=== PATIENT | female | born 1950 | race Caucasian/White ===

== ENCOUNTER 2020-10-26 08:53 | Outpatient (REF) | payer BC, SELFPAY ==
[2020-10-26 14:20] LABS: Alanine Aminotransferase 41 U/L (0-31); Anion Gap 14 (12-20); Aspartate Amino Transferase 30 U/L (5-31); Blood Urea Nitrogen 21 mg/dL (9-16); Carbon Dioxide 28 mmol/L (22-29); Chloride 104 mmol/L (96-108); Cholesterol 194 mg/dL; Estimated Glomerular Filt Rate > 60; HDL Cholesterol 49 mg/dL; LDL Cholesterol Calculated 102 mg/dl; Potassium 4.1 mmol/L (3.3-5.1); Sodium 142 mmol/L (135-145); Triglycerides 219 mg/dL
== END 2020-10-26 08:54 | disposition home or self-care (01) ==
LOC: HO.HMGCLDS 08:53
PROVIDERS: PCP Internal Medicine; Visit Provider Internal Medicine
DX: E78.00 Pure hypercholesterolemia, unspecified (principal); I10 Essential (primary) hypertension
CPT/HCPCS: 36415; 80051; 80061; 82565; 84450; 84460; 84520

== ENCOUNTER 2022-09-29 15:32 | Emergency (ER) | payer MEDICARE, SELFPAY ==
--- NOTE | ~2022-09-29 | US_ITS ---
EXAMINATION: US PELVIS CLINICAL INFORMATION: Lower abdominal pain COMPARISON: Pelvic ultrasound 06/27/2021 TECHNIQUE: Ultrasound of the pelvis is performed using both transabdominal and transvaginal transducers along with Doppler. Transvaginal imaging is performed due to inadequate visualization transabdominally. FINDINGS: Uterus: The uterus is anteverted and measures 6.2 x 2.9 x 3.9 cm. The double wall endometrial thickness is 0.4 mm. The uterus is smooth in contour and has normal myometrial echogenicity. A fundal fibroid is noted on the right measuring 1.6 x 1.5 x 1.3 cm. In 2021 this measured 2.5 cm. A small punctate calcification is seen in the lower uterine segment Adnexa: The right ovary was not seen. Left ovary measures 1.5 x 0.7 x 0.9 cm for a volume of 0.5 mL and appears unremarkable. No free fluid was present in the cul-de-sac US/US pelvic ovarian doppler IMPRESSION: 1. Small uterine fibroid. 2. Normal-appearing left ovary. 3. Nonvisualization of the right ovary.
--- NOTE | ~2022-09-29 | CT_ITS ---
EXAMINATION: CT ABDOMEN AND PELVIS WITH CONTRAST CLINICAL INFORMATION: Abdominal pain with urinary tract symptoms COMPARISON: None available. TECHNIQUE: Multidetector volumetric images were obtained from the superior aspect of the liver through the pubic symphysis following administration 85 mL of Omnipaque 350 intravenous contrast. Sagittal and coronal reformatted images were obtained on the technologist's workstation. Oral contrast: No This CT examination was performed using dose optimization techniques as appropriate, variously including the following: *Automated exposure control *Adjustment of mA and/or kV according to patient size (this includes techniques or standardized protocols for targeted exams where dose is matched to indication/reason for exam; i.e. extremities or head) *Use of iterative reconstruction technique DLP: 523 mGy-cm FINDINGS: LUNG BASES: The visualized lung bases are unremarkable aside from some minimal basilar atelectasis.. LIVER, GALLBLADDER, AND BILIARY TREE: The liver is enlarged measuring almost 23 cm in cephalocaudad dimension with decreased attenuation suggesting hepatic steatosis. No focal hepatic lesion or biliary ductal dilatation is present. The dome of the right lobe of the liver is not included on this exam. The gallbladder is unremarkable with no evidence of radiopaque gallstones, gallbladder wall thickening, or obvious pericholecystic inflammatory changes. PANCREAS: Unremarkable. SPLEEN: Unremarkable. ADRENAL GLANDS: Unremarkable. KIDNEYS AND URETERS: The kidneys are normal in size, shape, and attenuation. Tiny 3 and 4 mm hypodensities in the left kidney consistent with benign cysts. No additional imaging or follow-up is needed. No solid renal masses. No hydronephrosis, hydroureter, or calculi seen. No perinephric stranding. BLADDER: Unremarkable. GASTROINTESTINAL TRACT: Colonic diverticula are present most prominent on the left without evidence of acute diverticulitis. The small and large bowel are unremarkable. The appendix is not seen but there is no evidence of appendicitis evidence of appendicitis. ABDOMINAL WALL: No significant hernia is appreciated. LYMPH NODES: Normal. VASCULAR: Unremarkable. PELVIC VISCERA: The uterus and adnexa are unremarkable aside from the presence of some punctate calcifications in the lower uterine segment and cervix. OSSEOUS STRUCTURES: Degenerative changes are present most marked at L5-S1. CT/CT abdomen pelvis w IV con IMPRESSION: 1. An etiology for the patient's abdominal pain has not been found. 2. Incidental note made of an enlarged fatty liver, colonic diverticulosis without diverticulitis and degenerative changes L5-S1. Fleischner guidelines were followed.
--- NOTE | ~2022-09-29 | US_ITS ---
EXAMINATION: US PELVIS CLINICAL INFORMATION: Lower abdominal pain COMPARISON: Pelvic ultrasound 06/27/2021 TECHNIQUE: Ultrasound of the pelvis is performed using both transabdominal and transvaginal transducers along with Doppler. Transvaginal imaging is performed due to inadequate visualization transabdominally. FINDINGS: Uterus: The uterus is anteverted and measures 6.2 x 2.9 x 3.9 cm. The double wall endometrial thickness is 0.4 mm. The uterus is smooth in contour and has normal myometrial echogenicity. A fundal fibroid is noted on the right measuring 1.6 x 1.5 x 1.3 cm. In 2021 this measured 2.5 cm. A small punctate calcification is seen in the lower uterine segment Adnexa: The right ovary was not seen. Left ovary measures 1.5 x 0.7 x 0.9 cm for a volume of 0.5 mL and appears unremarkable. No free fluid was present in the cul-de-sac US/US pelvic and transvaginal IMPRESSION: 1. Small uterine fibroid. 2. Normal-appearing left ovary. 3. Nonvisualization of the right ovary.
[2022-09-29 15:56] VITALS: BP 148/77; PULSE 70; RESP 18; TEMP 37.1; O2SAT 96; BMI 31.6
[2022-09-29 16:21] LABS: MANUAL DIFF FLAG NO
[2022-09-29 16:23] LABS: Basophils Percent Auto 0.4 % (0-2); Eosinophils Absolute Auto 0.1 X10*3/uL (0.0-0.4); Eosinophils Percent Auto 0.7 % (0-4); Hematocrit 43.3 % (37.0-47.0); Imm Gran Abs Auto 0.06 X10*3/uL (0.00-0.03); Imm Gran Pct Auto 0.6 % (0.0-0.4); Lymphocytes Absolute Auto 4.3 X10*3/uL (1.2-4.9); Lymphocytes Percent Auto 40.2 % (20-40); Mean Corpuscular HGB Conc 32.3 g/dl (31.0-35.0); Mean Corpuscular Hemoglobin 27.9 pg (27.0-33.0); Mean Corpuscular Volume 86.4 fL (80.0-98.0); Mean Platelet Volume 9.5 fL (9.4-12.3); Monocytes Absolute Auto 0.5 X10*3/uL (0.1-1.2); Monocytes Percent Auto 4.5 % (2-11); Neutrophils Absolute Auto 5.8 x10*3/uL (2.0-8.3); Neutrophils Percent Auto 53.6 % (45-73); Platelet Count 273 X10*3/uL (160-400); Red Blood Count 5.01 X10*6/uL (4.20-5.50); Red Cell Distribution Width 13.2 % (11.0-16.0); White Blood Count 10.8 X10*3/uL (4.8-10.8)
[2022-09-29 16:25] LABS: Appearance Urine Clear; Color Urine Yellow; Glucose Urine UA Negative (Negative); Leukocyte Esterase Urine Negative (Negative); Nitrite Urine Negative (Negative); PH 5.5 (5.0-9.0); Specific Gravity - Urine 1.015 (1.005-1.025); Urine Blood Negative (Negative); Urine Ketones Negative (Negative); Urine Protein Negative (Neg-Trace)
[2022-09-29 16:36] LABS: Anion Gap 15 (12-20); Blood Urea Nitrogen 17 mg/dL (9-16); Calcium 9.8 mg/dL (8.4-10.2); Carbon Dioxide 28 mmol/L (22-29); Chloride 106 mmol/L (96-108); Creatinine Clr Calc Pharmacy 57.5; Estimated Glomerular Filt Rate > 60; Glucose Random 99 mg/dL (60-115); Sodium 145 mmol/L (135-145)
[2022-09-29 16:50] LABS: COVID-19 Test Negative (Negative); IDNOW Serial# BCCEAD1C
--- NOTE | 2022-09-29 17:48 | ED.ABDPAIN ---
HPI - Abdominal Pain General Chief Complaint: Abdominal Pain Stated Complaint: abd pain/ high bp Time Seen by Provider: 09/29/22 17:46 Source: patient Mode of arrival: ambulatory Limitations: no limitations History of Present Illness HPI narrative: This is 72-year-old female presenting to the emergency department for evaluation of suprapubic abdominal discomfort, urinary hesitancy and frequency since this morning. Patient reports sharp/stabbing pain that is intermittent in nature at times worse when she tries to urinate. This is never happened to her before. No history of kidney stones. She does report that she has had issues with her endometrium in the past and they did cause similar pain. Patient denies dysuria, hematuria, fevers, chills, chest pain, shortness of breath, nausea, vomiting, flank pain, dizziness, weakness. Related Data Previous Rx's Medication Instructions Recorded cefuroxime axetil 250 mg tablet 250 mg PO BID 7 days #14 tabs 09/29/22 Allergies Allergy/AdvReac Type Severity Reaction Status Date / Time Unable to Assess Allergy Unverified 09/29/22 17:48 Review of Systems Review of Systems Constitutional : No Weight loss, No Fever, No Chills, No Fatigue, No Malaise ENT/Mouth : No sore throat, No Rhinorrhea Eyes: No Eye Pain, No Swelling, No Redness Cardiovascular : No Chest Pain, No SOB, No Dyspnea on Exertion, No Orthopnea, No Edema, No Palpitations Respiratory : No Cough, No Sputum, No Wheezing Gastrointestinal : No Nausea, No Vomiting, No Diarrhea, No Constipation, + abdominal Pain, No Hematochezia, No Melena Genitourinary : No Dysuria, + Urinary Frequency, No Hematuria, Musculoskeletal : No joint pain, No Myalgias, No Joint Swelling Skin : No Skin Lesions, No rash Neuro : No Weakness, No Numbness, No Dizziness, No Headache Psych : No Anxiety/Panic, No Depression All other systems reviewed and are negative Yes all other systems are reviewed and are negative [facility] Past Medical History Attestation statement: The following information was validated with the patient. Source: old records reviewed and nursing notes reviewed Social History Social History Alcohol intake: current Alcohol intake frequency: holidays/special occasions only Smoked in Last 30 Days: No Use of substances other than those prescribed or required for medical reasons: No Advance Directives: No Advance Directives Information Provided: No Physical Exam ED Vital Signs: Vital Signs - 24 hr 09/29/22 15:56 09/29/22 18:41 09/29/22 20:41 Temperature 98.8 F 97.6 F Pulse Rate 70 70 66 Respiratory Rate 18 16 18 Blood Pressure 148/77 H 151/74 H 146/70 H Pulse Oximetry 96 96 95 Oxygen Delivery Method Room Air Room Air Room Air BMI result Body Mass Index 31.6 vss Appearance: Alert.? Oriented X3.? No acute distress.? Head: Normocephalic, atraumatic, no step-offs or deformities Eyes: Pupils equal, round and reactive to light.? ENT: Pharynx normal.? CVS: Normal heart rate and rhythm.? Pulses normal.? Respiratory: No respiratory distress.? Breath sounds normal.? Abdomen: Soft and mild suprapubic discomfort.? Skin: Skin warm and dry.? Normal skin color.? Normal skin turgor.? Extremities: No lower extremity edema.? No calf ttp. 5/5 strength to bilateral upper and lower extremities Back: No CVA tenderness bilaterally Neuro: Oriented X 3.? No motor deficit.? No sensory deficit. CN 2-12 intact Course Reevaluation(s) Reevaluation #1: CBC appears to be within normal limits. Chemistry unremarkable. UA without infection. COVID negative. Imaging pending. Time: 19:43 Reevaluation #2: US w/ small uterine fibroid and normal appearing left ovary. Nonvisualized right ovary. Doppler flow is seen to the left ovary, unable to visualize right ovary on ultrasound however unlikely that this is ovarian torsion. CT of the abdomen and pelvis unable to identify an etiology for patient's abdominal pain. Incidental note of enlarged fatty liver, colonic diverticulosis and degenerative changes at L5 and S1. Patient feeling better after morphine. No longer tender to palpation anywhere. Will treat for cystitis, and UTI some with Ceftin. Educated patient on diagnosis and treatment plan, answered all question, patient verbalizes understanding. At this time patient will be discharged home, advised to return with new or worsening symptoms. Educated on worrisome signs and symptoms and when to return. At this time I feel comfortable discharge home. Time: 21:31 Medical Decision Making Medical Decision Making [facility] Narrative: 1800 72 of female presents with suprapubic abdominal discomfort, frequent urination and difficulty initiating urinary stream since this morning Physical exam suprapubic discomfort. Concerns for possible UTI versus cystitis versus kidney stone versus obstructing uropathy. No signs of pyelonephritis. Unlikely ovarian cyst or ovarian torsion. Plan labs, urine, imaging Differential Diagnosis Differential Diagnoses: The differential diagnosis associated with the presentation includes Concerns for possible UTI versus cystitis versus kidney stone versus obstructing uropathy. No signs of pyelonephritis. Unlikely ovarian cyst or ovarian torsion. Admission/Observation Consideration of admission/observation: Escalation of care including admission/observation considered Unlikely Lab Data [facility] Lab Attestation statement: I reviewed the patient's lab results. 09/29/22 16:15 09/29/22 16:15 Labs: Lab Results 09/29/22 09/29/22 09/29/22 Range/Units 16:12 16:12 16:15 WBC 10.8 (4.8-10.8) X10*3/uL RBC 5.01 (4.20-5.50) X10*6/uL Hgb 14.0 (12.0-16.0) g/dl Hct 43.3 (37.0-47.0) % MCV 86.4 (80.0-98.0) fL MCH 27.9 (27.0-33.0) pg MCHC 32.3 (31.0-35.0) g/dl RDW 13.2 (11.0-16.0) % Plt Count 273 (160-400) X10*3/uL MPV 9.5 (9.4-12.3) fL Immature Gran % (Auto) 0.6 H (0.0-0.4) % Neut % (Auto) 53.6 (45-73) % Lymph % (Auto) 40.2 H (20-40) % [place] % (Auto) 4.5 (2-11) % Eos % (Auto) 0.7 (0-4) % Baso % (Auto) 0.4 (0-2) % Lymph # (Auto) 4.3 (1.2-4.9) X10*3/uL [place] # (Auto) 0.5 (0.1-1.2) X10*3/uL Eos # (Auto) 0.1 (0.0-0.4) X10*3/uL Baso # (Auto) 0.0 (0.0-0.2) X10*3/uL Abs Immat Gran (auto) 0.06 H (0.00-0.03) X10*3/uL Absolute Neuts (auto) 5.8 (2.0-8.3) x10*3/uL Absolute Nucleated RBC 0.000 (0.0-0.012) X10*3/uL Nucleated RBC % (auto) 0.0 (0.0-0.2) /100WBC Sodium (135-145) mmol/L Potassium (3.3-5.1) mmol/L Chloride (96-108) mmol/L Carbon Dioxide (22-29) mmol/L Anion Gap (12-20) BUN (9-16) mg/dL Creatinine (0.5-1.4) mg/dL Estim Creat Clear Calc Estimated GFR Random Glucose (60-115) mg/dL Calcium (8.4-10.2) mg/dL Total Bilirubin (0.0-1.0) mg/dL Direct Bilirubin (0.0-0.5) mg/dL AST (5-31) U/L ALT (0-31) U/L Alkaline Phosphatase (39-117) U/L Total Protein (6.5-8.0) g/dL Albumin (3.5-5.0) g/dL Lipase (8-78) U/L Urine Color Yellow Urine Appearance Clear Urine pH 5.5 (5.0-9.0) Ur Specific [place] 1.015 (1.005-1.025) Urine Protein Negative (Neg-Trace) mg/dL Urine Glucose (UA) Negative (Negative) mg/dL Urine Ketones Negative (Negative) mg/dL Urine Blood Negative (Negative) Urine Nitrite Negative (Negative) Ur Leukocyte Esterase Negative (Negative) COVID-19 (YAYA) Negative (Negative) COVID-19 Clin Com See Note 09/29/22 Range/Units 16:15 WBC (4.8-10.8) X10*3/uL RBC (4.20-5.50) X10*6/uL Hgb (12.0-16.0) g/dl Hct (37.0-47.0) % MCV (80.0-98.0) fL MCH (27.0-33.0) pg MCHC (31.0-35.0) g/dl RDW (11.0-16.0) % Plt Count (160-400) X10*3/uL MPV (9.4-12.3) fL Immature Gran % (Auto) (0.0-0.4) % Neut % (Auto) (45-73) % Lymph % (Auto) (20-40) % [place] % (Auto) (2-11) % Eos % (Auto) (0-4) % Baso % (Auto) (0-2) % Lymph # (Auto) (1.2-4.9) X10*3/uL [place] # (Auto) (0.1-1.2) X10*3/uL Eos # (Auto) (0.0-0.4) X10*3/uL Baso # (Auto) (0.0-0.2) X10*3/uL Abs Immat Gran (auto) (0.00-0.03) X10*3/uL Absolute Neuts (auto) (2.0-8.3) x10*3/uL Absolute Nucleated RBC (0.0-0.012) X10*3/uL Nucleated RBC % (auto) (0.0-0.2) /100WBC Sodium 145 (135-145) mmol/L Potassium 4.0 (3.3-5.1) mmol/L Chloride 106 (96-108) mmol/L Carbon Dioxide 28 (22-29) mmol/L Anion Gap 15 (12-20) BUN 17 H (9-16) mg/dL Creatinine 0.78 (0.5-1.4) mg/dL Estim Creat Clear Calc 57.5 Estimated GFR > 60 Random Glucose 99 (60-115) mg/dL Calcium 9.8 (8.4-10.2) mg/dL Total Bilirubin 0.3 (0.0-1.0) mg/dL Direct Bilirubin 0.1 (0.0-0.5) mg/dL AST 31 (5-31) U/L ALT 34 H (0-31) U/L Alkaline Phosphatase 107 (39-117) U/L Total Protein 7.1 (6.5-8.0) g/dL Albumin 4.4 (3.5-5.0) g/dL Lipase 24 (8-78) U/L Urine Color Urine Appearance Urine pH (5.0-9.0) Ur Specific [place] (1.005-1.025) Urine Protein (Neg-Trace) mg/dL Urine Glucose (UA) (Negative) mg/dL Urine Ketones (Negative) mg/dL Urine Blood (Negative) Urine Nitrite (Negative) Ur Leukocyte Esterase (Negative) COVID-19 (YAYA) (Negative) COVID-19 Clin Com Independent Interpretation I performed an independent interpretation of an: Ultrasound ( US/US pelvic ovarian doppler IMPRESSION: 1. Small uterine fibroid. 2. Normal-appearing left ovary. 3. Nonvisualization of the right ovary.) and CT Scan Radiology Impression Discussion of test interpretation with radiology: I have reviewed the radiologist's reading. Prescription Management I considered prescription management with: Antibiotic Core Measures AMI core measures followed: Yes Measure exclusions: not indicated Medications Administered Discontinued Medications Generic Name Dose Route Start Last Admin Trade Name Brady PRN Reason Stop Dose Admin Iohexol 100 ml 09/29/22 19:21 09/29/22 19:21 Iohexol 350 Mg/Ml 100 Ml Infus..Btl IV 09/29/22 19:22 85 ml ONCE ONE Administration Morphine Sulfate 2 mg 09/29/22 19:09 09/29/22 20:35 Morphine Sulfate 2 Mg/Ml Cartridge IVPUSH 09/29/22 19:10 2 mg ONCE ONE Administration Protocol Critical Care Time Critical Care Time Critical Care Time: No Discharge Plan Discharge Clinical Impression: Abdominal pain, suprapubic, Urinary hesitancy Patient Disposition: Home, Self-Care Instructions: Pelvic Pain in Women (ED), Heat Pack Application (ED), Pelvic Pain (ED), Urinary Urgency and Frequency (DC) Additional Instructions: Take your medications as prescribed. If you were prescribed antibiotics today, it is important that you take your medication to their entirety, do not skip any doses, do not finish them early. Follow-up with your primary care provider this week. Return to the emergency department with new or worsening symptoms. Such as fevers, chills, chest pain, shortness of breath, nausea, vomiting, dizziness, headache, vision changes, lethargy In case of emergency call 911 CT/CT abdomen pelvis w IV con IMPRESSION: 1.? An etiology for the patient's abdominal pain has not been found. 2.? Incidental note made of an enlarged fatty liver, colonic diverticulosis without diverticulitis and degenerative changes L5-S1. ? Fleischner guidelines were followed. US/US pelvic and transvaginal IMPRESSION: 1.? Small uterine fibroid. 2.? Normal-appearing left ovary. 3.? Nonvisualization of the right ovary. Doppler flow was seen in the left ovary. The right ovary, as mentioned in the original report was not visualized and therefore vascular flow cannot be assessed. Prescriptions: New cefuroxime axetil 250 mg tablet 250 mg PO BID 7 Days Qty: 14 0RF Referrals: Ferny Doran MD [Primary Care Provider] - 2 days [facility] [Provider Group] - 2 days
[2022-09-29 18:05] LABS: Alanine Aminotransferase 34 U/L (0-31); Albumin Level 4.4 g/dL (3.5-5.0); Alkaline Phosphatase 107 U/L (39-117); Aspartate Amino Transferase 31 U/L (5-31); Bilirubin Direct 0.1 mg/dL (0.0-0.5); Bilirubin Total 0.3 mg/dL (0.0-1.0); Total Protein 7.1 g/dL (6.5-8.0)
[2022-09-29 18:41] VITALS: BP 151/74; PULSE 70; RESP 16; TEMP 36.4; O2SAT 96
[2022-09-29 18:58] LABS: Lipase 24 U/L (8-78)
[2022-09-29] MEDS: iohexoL 350 MG/ML 100 ML INFUS..BTL IV (19:21)
[2022-09-29] MEDS: Morphine Sulfate 2 MG/ML CARTRIDGE IVPUSH (20:35)
[2022-09-29 20:41] VITALS: BP 146/70; PULSE 66; RESP 18; O2SAT 95
== END 2022-09-29 22:15 | disposition home or self-care (01) ==
PROVIDERS: Physician Assistant; Emergency Provider Student in an Organized Health Care Education/Training Program; PCP Internal Medicine
DX: R33.9 Retention of urine, unspecified (principal); R10.2 Pelvic and perineal pain; Z20.822 Contact with and (suspected) exposure to COVID-19; Z20.828 Contact with and (suspected) exposure to other viral communicable diseases; Z79.899 Other long term (current) drug therapy
CPT/HCPCS: 74177; 76830; 76856; 80048; 80076; 81003; 83690; 85025; 87635; 93975; 96374; 99284; J2270; Q9967

== ENCOUNTER 2025-01-05 09:40 | Emergency (ER) | payer MEDICARE, SELFPAY ==
[2025-01-05 09:48] VITALS: BP 128/53; PULSE 83; RESP 18; TEMP 36.4; O2SAT 97; BMI 27.4
--- NOTE | 2025-01-05 09:56 | ED.GENADULT ---
HPI - General Adult General Chief complaint: Eye Problems Stated complaint: swollen left eye Time Seen by Provider: 01/05/25 09:51 Source: patient Mode of arrival: ambulatory Limitations: no limitations History of Present Illness ED Provider: Sylwia Beebe PA-C HPI narrative: Patient is a 74 year old assigned female at with a history of shingles diagnosed on 01/02 presenting to the emergency department today with bilateral below eye swelling - left worse than right. Patient states that she was diagnosed with shingles and started on PO antivirals but today she woke up and has bilateral below lower eye lid swelling, left worse than right. Patient denies any dizziness, lightheadedness, abdominal pain, nausea, vomiting, fever, chills, blurry vision, double vision, loss of vision, chest pain, difficulty breathing, shortness of breath, back pain, night sweats, pain with urination, increased urinary frequency, increased urinary urgency, blood in her urine or stool, syncope or a near syncopal episode, recent trauma or falls, bowel incontinence, bladder incontinence, or any other complaints at this time. Relieving factors: none Exacerbating factors: none Associated symptoms: rash Treatments prior to arrival: other (PO Antivirals since 01/02) Related Data Previous Rx's ?Medication ?Instructions ?Recorded cefuroxime axetil 250 mg tablet 250 mg PO BID 7 days #14 tabs 09/29/22 clindamycin HCl 300 mg capsule 300 mg PO TID 7 days #21 caps 01/05/25 (Cleocin HCl) ondansetron 4 mg disintegrating 4 mg PO Q8H 3 days #9 tabs 01/05/25 tablet prednisone 20 mg tablet 20 mg PO DAILY 7 days #7 tabs 01/05/25 Allergies Allergy/AdvReac Type Severity Reaction Status Date / Time No Known Allergies Allergy Verified 01/05/25 09:50 Review of Systems Constitutional: Constitutional: Reports no additional constitutional complaints, Denies chills, Denies fever(s) and Denies night sweats Eyes: Eyes: Reports no additional eye complaints, Denies blurry vision, Denies change in vision, Denies diplopia, Denies eye discharge, Denies loss of vision and Denies eye pain ENT: Denies dizziness Comments: bilateral lower eye lid swelling Cardiovascular: Cardiovascular: Reports no additional cardiovascular complaints, Denies chest pain, Denies lightheadedness, Denies Loss of Consciousness and Denies dyspnea Respiratory: Respiratory: Reports no additional respiratory complaints and Denies dyspnea Gastrointestinal: Gastrointestinal: Reports no additional gastrointestinal complaints, Denies abdominal pain, Denies melena, Denies hematochezia, Denies change in bowel habits and Denies change in stool character Genitourinary: Genitourinary: Denies hematuria, Denies urinary frequency, Denies dysuria, Denies urinary incontinence, Denies urinary hesitancy and Denies urinary urgency Musculoskeletal: Musculoskeletal: Reports no additional musculoskeletal complaints, Denies numbness and Denies tingling Integumentary/Breasts: Comments: left sided forehead rash Neurologic: Denies dizziness, Denies loss of vision, Denies numbness and Denies tingling Psychiatric: Psychiatric: Reports no additional psychiatric complaints Endocrine: Endocrine: Reports no additional endocrine complaints Hematologic/Lymphatic: Hematologic/Lymphatic: Reports no additional hematologic/lymphatic complaints Allergic/Immunologic: Allergic/Immunologic: Reports no additional allergic/immunologic complaints PMFSH Past Medical History Attestation statement: The following information was validated with the patient. Source: old records reviewed and nursing notes reviewed Social History Social History Alcohol intake: current Alcohol intake frequency: holidays/special occasions only Advance Directives: No Advance Directives Information Provided: Yes Do you have a plan to hurt others: No Plan Physical Exam ED Vital Signs: Vital Signs - 24 hr 01/05/25 09:48 01/05/25 11:03 Temperature 97.6 F 98.6 F Pulse Rate 83 70 Respiratory Rate 18 18 Blood Pressure 128/53 L 117/75 Pulse Oximetry 97 93 Oxygen Delivery Method Room Air Room Air BMI result Body Mass Index 27.4 Const General: cooperative, no acute distress, alert and awake Nutritional Appearance: well nourished Orientation/consciousness: patient oriented x3 HENMT Other: Head: Yes atraumatic Ears: hearing grossly normal bilaterally and external ears normal General nose exam: Normal external nose present, no nasal discharge noted and no epistaxis Face and sinus: No abrasion and No laceration Mouth: Normal oral and palatal mucosa present, no drooling and no muffled voice Eyes General: appearance normal, both eyes and all related structures Alignment and Position: alignment normal and position normal Periorbital: periorbital findings normal Eyelids: Yes eyelid abnormality (edema in upper and lower eyelid left eye; edema in lower eyelid right eye) Conjunctivae: conjunctivae normal Pupils: Equal, round and reactive pupils present EOM: EOMs intact bilaterally Direct Ophthalmoscopy: no photophobia Neck Neck: Yes normal visual inspection, Yes full ROM and Yes no lymphadenopathy Resp Effort & Inspection: normal respiratory effort and able to speak in complete sentences Skin Rashes: rashes noted (vesicles on erythematous base, some crusting lesions present) left frontal region Neuro General: patient oriented x3, moves all extremities and CN's II-XI intact bilaterally Cranial nerves: Yes Equal, round and reactive pupils present Cognition (Neuro): normal cognition Extrem General: Yes normal to inspection, Yes full ROM and Yes capillary refill normal Psych Appearance: grossly normal Mental Status: mental status grossly normal Affect: normal affect Attitude: cooperative Thought process: Normal thought process present Thought content: Normal thought content present Insight: Good insight present (Psych) Medical Decision Making Medical Decision Making MDM Narrative: Patient is a 74 year old assigned female at with a history of shingles diagnosed on 01/02 presenting to the emergency department today with bilateral below eye swelling - left worse than right. Patient's physical exam was as noted in the physical exam portion of this note. I explained my physical exam findings to the patient. I answered all questions asked by the patient. Patient's bilateral lower eye swelling is most consistent with soft tissue swelling secondary to her left sided forehead shingles. Patient's nose is compeltely normal, no lesions present. Patient's eyes themselves are normal. Given the lesion on the left upper eye lid and surrounding erythema / swelling - will treat as periorbital cellulitis. I stressed the importance of the patient taking her medication as directed (either prescribed or as the over the counter packaging recommends). I stressed the importance of the patient following up with her primary care provider and an industrial automation specialist. I stressed the importance of the patient returning to the emergency department immediately if her symptoms were to worsen or if she were to develop any dizziness, shortness of breath, difficulty breathing, chest pain, blurry vision, loss of vision, nausea, vomiting, abdominal pain, fever, chills, back pain, or any other complaints. Patient verbalized agreement and understanding with this treatment plan and discharge. Differential Diagnosis Differential Diagnoses: The differential diagnosis associated with the presentation includes Soft tissue swelling Shingles Periorbital cellulitis Admission/Observation Consideration of admission/observation: Escalation of care including admission/observation considered Patient would have been admitted to the hospital had her clinical presentation warranted hospital admission. Prescription Management I considered prescription management with: Antiviral (patient already on PO antivirals) and Antibiotic (patient prescribed an antibiotic for periorbital cellulitis) Discharge Plan Discharge Clinical Impression: Preseptal cellulitis of left eye, Soft tissue swelling Shingles Qualifiers: Herpes zoster complications: without complications Qualified Code(s): B02.9 - Zoster without complications Patient Disposition: Home, Self-Care Instructions: Shingles (ED), Periorbital Cellulitis (ED) Additional Instructions: Your exam today is consistent with left sided pre-septal (periorbital) cellulitis (infection) and soft tissue swelling. It is crucial you sleep at a more upright angle (approximately 45 degrees) to avoid continued swelling. I'm prescribing you antibiotics that you should take with a probiotic (purchase over the counter) to help avoid overgrowth of your normal bacteria in your intestines. Follow up with your primary care provider and an industrial automation specialist. Return to the emergency department immediately if your symptoms worsen or if you develop any numbness, tingling, dizziness, shortness of breath, difficulty breathing, chest pain, blurry vision, loss of vision, nausea, vomiting, abdominal pain, fever, chills, back pain, or any other complaints. O seu exame de hoje ? consistente com celulite pr?-septal (periorbital) (infec??o) do lado esquerdo e edema dos tecidos moles. ? crucial que durma num ?ngulo mais ereto (aproximadamente [address] gra[address]) para evitar o incha?o cont?nuo. Estou a prescrever antibi?ticos que deve zackary com um probi?anne (comprado diego receita m?dica) para ajudar a evitar o crescimento excessivo de bact?rias normais no intestino. Consulte o seu m?dico de cuidados prim?enciso e um oftalmologista. Volte imediatamente ao servi?o de urg?ncia se os seus sintomas piorarem ou se desenvolver dorm?ncia, formigueiro, tonturas, falta de ar, dificuldade em respirar, chan no peito, vis?o turva, perda de vis?o, n?useas, v?mitos, chan abdominal, febre, arrepios, chan fredy sammy ou qualquer outra queixa. Prescriptions: New clindamycin HCl [Cleocin HCl] 300 mg capsule 300 mg PO TID 7 Days Qty: 21 0RF prednisone 20 mg tablet 20 mg PO DAILY 7 Days Qty: 7 0RF ondansetron 4 mg tablet,disintegrating 4 mg PO Q8H 3 Days Qty: 9 0RF No Action cefuroxime axetil 250 mg tablet 250 mg PO BID 7 Days Qty: 14 0RF Referrals: Nicholas Marvin [Physician, Ophthalmology] Ferny Doran MD [Primary Care Provider, Internal Medicine] Interventions: ED Discharge Assessment Last Done: 01/05/25 11:03 Discharge Date/Time: 01/05/25 11:04 Print Language: French
--- NOTE | 2025-01-05 10:17 | PC.NURSE ---
Pt noted on Wednesday she started to get a rash on her upper right forehead with pain to her scalp. Pt started on antivirals at that time. Daughter reporting rash is getting worse, is now down into her eyelid. Eyes are becoming more swollen and red. Rash seems to be scabbing over at this time. Denies pain/ vision changes. Pt reporting she just gets this flush hot feeling at times, and itching. She has been using ice to help. pt took Motrin right before coming in. Pt does have history of shingles on her flanks, but never on the face. Awaiting further orders from provider at this time, call pereira within reach, ice pack given for comfort.
--- NOTE | 2025-01-05 10:23 | PC.NURSE ---
Pt daughter Jacquelyn Rebolledo is an RN here at [facility], pt verbalized it was okay for us to communicate with her throughout her ED stay to keep her up to date on what is happening
--- OUTSIDE RECORDS SUMMARY | 2025-01-05 10:26 | XMS_ITS | Data Portability ---
Author Organization [place] - [facility], Allergy Address [address] [address] Care Team Providers Care Gore Seamer Name Role Phone MARISOL DANIELLE Primary Care Provider [phone] Assessment Encounter Date Assessment Date Assessment LastModified by Organization Details LastModified Time 08/22/2024 08/22/2024 Resolution: Earmolds re-tubed. New tone hooks (no damper) were coupled to devices. The battery doors are broken but this does not prevent the device from working. The battery stays in the casing when the battery door is removed but it was easy to shake the battery out of the casing. This device is discontinued. Patient to case picker device(s) at their convenience. [email or web address] Not available 08/22/2024 10:46:12 Plan of Treatment Reminders Order Date Submit Date Provider Last Modified By Organization Details Last Modified Time Details Appointments Hearing Test 2024 10:00A M Hearing Test Not available Not available Not available Establish ed 15 2024 10:45A M ANGELITA MATTHEWS MD Not available Not available Not available Lab None recorded. Referral None recorded. Procedures None recorded. Surgeries None recorded. Imaging None recorded. Medication Orders None recorded. Patient TargetsNo targets recorded. Patient InstructionsNo instructions recorded. Reason for Referral None Reported. Problems Name Problem SNOMED Code Status Onset Date Resolution Date Notes Provider Name and Address Organization Details Recorded Time Sensorine ural hearing loss of bilateral ears 079221430 Active 2017 Sensorineu ral hearing loss, bilateral; Note: Date Diagnosed: 09/23/2017 10:23 AM (H90.3) Not Available [facility] 03:[facility] Problem Notes None recorded. Medical Equipment None Reported. Medications Name Sig Start Date Stop Date Status Note LastModified by Organization Details LastModified Time simvastati n 20 mg tablet TAKE 1 TABLET BY MOUTH AT BEDTIME active Not Available Not Available No t Available lisinopril 10 mg-hydroch lorothiazi de 12.5 mg tablet TAKE 1 TABLET BY MOUTH ONCE DAILY active Not Available Not Available No t Available One-A-Day Essential tablet active Medication ID: [id number] Bra nd Name: One-A-Day Essential Send Method: E-Prescrib ed Subs Allowed: subs OK Medicat ionGeneric Name: One-A-Day Essential Not Available Not Available Not Available sertraline 50 mg tablet TAKE 1 TABLET BY MOUTH ONCE DAILY active Not Available Not Available No t Available Fish Oil 120 mg-180 mg capsule active Medication ID: [id number] Bra nd Name: Fish Oil Send Method: E-Prescrib ed Subs Allowed: subs OK Medicat ionGeneric Name: Fish Oil Not Available Not Available Not Available Citracal Plus Bone Density Builder 300 mg-200 unit-13.5 mg tablet active Medication ID: [id number] Bra nd Name: Citracal + Bone Density Se nd Method: E-Prescrib ed Subs Allowed: subs OK Medicat ionGeneric Name: Citracal + Bone Density Not Available Not Available Not Available Vitals None Recorded Social History None recorded. Functional Status None recorded. Mental Status None recorded. Family History Nothing Reported. Medical History No medical history recorded. Gynecological HistoryNo gynecological history recorded. Obstetrics History GPAL:G 0 P 0 0 0 0 Past Encounters Encounter ID Performer Location Encounter Start Date Encounter Closed Date Diagnosis/Indication Diagnosis SNOMED-CT Code Diagnosis ICD10 Code Diagnosis Note [id number] Justina GARCIA [facility] [address] [address] 08/22/2024 10:38:18 08/23/2024 07:41:10 Sensorineural hearing loss of bilateral ears [id number] H90.3 Health Concerns Section Related Observation LastModified by Organization Detai ls LastModified Time None Recorded Concern Status LastModified by Organization Details LastModified Time None Recorded Advance Directives Directive None Recorded Payers Insurance Date Sequence Insurance Name Policy Number Policy Ohara Covered Member ID Ohara Member ID Guarantor Name 12/11/2024 1 *SELF PAY* Sudheer Hester 12/11/2024 1 [facility]: MEDICARE HMO BLUE (MEDICARE REPLACEMENT HMO) [id number] Brenda Mir [id number] Neyda Hester Notes Date Note Type Note Provider Name and Address Organization Details Recorded Time 08/22/2024 text/html Hearing Aid ProblemReported bypatient.Visit typedrop off repair Hearing Aiddamaged/broken Hearing Aiddamaged/broken DOREEN ANTHONY, [facility] [address] [facility],[place] [address], [place], [address], [facility] - [facility] 08/22/2024 10:46:38 OBGyn Episode No OBEpisode recorded.
[2025-01-05 11:03] VITALS: BP 117/75; PULSE 70; RESP 18; TEMP 37; O2SAT 93
== END 2025-01-05 11:04 | disposition home or self-care (01) ==
PROVIDERS: Emergency Provider Emergency Medicine; PCP Internal Medicine
DX: B02.9 Zoster without complications (principal)
CPT/HCPCS: 99283; 99284